=== PATIENT | female | born 1975 | race Caucasian/White ===

== ENCOUNTER 2018-12-15 22:54 | Emergency (ER) | payer MEDICAID, OTHER ==
[~2018-12-15] VITALS: Ht 147.3 cm; Wt 58.3 kg
[~2018-12-15 22:54] MED LIST: NAPR-985 PO
[2018-12-15 23:11] VITALS: BP 153/77; PULSE 70; RESP 18; Ht 147.3 cm; Wt 58.3 kg
[2018-12-15] MEDS ORDERED: ONDANSETRON (ODT) 4 MG TAB ODT STA (23:38)
[2018-12-15] MEDS ORDERED: KETOROLAC 30 MG INJ IM STA (23:38)
--- NOTE | 2018-12-15 23:42 | ERD ---
ER Documentation Chief Complaint Chief Complaint SHULTZ AND R EAR PAIN X 1 WEEK HPI 43-year-old female presenting to the emergency department complaining of gradual onset, 10/10 severity, intermittent headache for the past 1 week. She took Excedrin with some relief. She denies any nausea, vomiting, diarrhea. She stat es over the past 2 months she has been having intermittent headaches. She has not yet had imaging. ROS All systems reviewed and are negative except as per history of present illness. Medications Home Meds Active Scripts Naproxen* (Naprosyn*) 500 Mg Tablet, 500 MG PO BID PRN for PAIN AND/OR INFLAMMATION, #30 TAB Prov:NICOLASA YATES PA-C 12/16/18 Allergies Allergies: Coded Allergies: No Known Allergy (Unverified , 12/15/18) PMhx/Soc Medical and Surgical Hx: pt denies Medical Hx, pt denies Surgical Hx Hx Alcohol Use: No Hx Substance Use: No Hx Tobacco Use: No Smoking Status: Never smoker FmHx Family History: No diabetes Physical Exam Vitals Physical Exam Const: No acute distress Head: Atraumatic Eyes: Normal Conjunctiva ENT: Normal External Ears, Nose and Mouth. Neck: Full range of motion. No meningismus. Resp: Clear to auscultation bilaterally Cardio: Regular rate and rhythm, no murmurs Skin: No petechiae or rashes Back: No midline or flank tenderness Ext: No cyanosis, or edema Neur: Awake and alert. No neurological deficits. Psych: Normal Mood and Affect Results 24 hrs Laboratory Tests Test 12/15/18 23:47 POC Beta HCG, Qualitative NEGATIVE Current Medications Medications Dose Sig/Christine Start Time Status Last (Trade) Ordered Route PRN Stop Time Admin Dose Reason Admin 50 mg ONCE ONCE 12/16/18 DC 12/15/18 Diphenhydrami PO 00:00 12/16/18 23:54 ne HCl 00:01 (Benadryl) Ketorolac 30 mg ONCE STAT 12/15/18 DC 12/15/18 Tromethamine IM 23:38 12/15/18 23:54 (Toradol) 23:39 Ondansetron 4 mg ONCE STAT 12/15/18 DC 12/15/18 HCl (Zofran ODT 23:38 12/15/18 23:54 Odt) 23:39 [facility] [place] [id number] Radiology Main Line: [phone] DIAGNOSTIC IMAGING REPORT Patient: KAIDEN ALMEIDA : 1975 Age: 43 Sex: F MR #: [id number] [place] [facility] #: [id number] DOS: 12/15/18 0000 Ordering MD: NICOLASA YATES PA-C Location: [facility] Room/Bed: PROCEDURE: CT Head without. CLINICAL INDICATION: Headache. TECHNIQUE: The study was performed utilizing a multi-slice, multidetector CT scanner. Direct spiral 1 mm axial sections were obtained through the head without the use of intravenous contrast material. 1 or more of the following dose reduction techniques were utilized: Automated exposure control, adjustment of the mA and/or kV according to patient's size, iterative reconstruction technique. Coronal and sagittal reformations were obtained. The images were reviewed on a PACS workstation. DICOM images are available. RADIATION DOSE: CTDIvol: 38.46 mGy mGy DLP: 634.23 mGy.cm mGy-cm COMPARISON: No prior studies are available for comparison. FINDINGS: There is no intracranial hemorrhage, extra-axial fluid collection, mass lesion, midline shift or hydrocephalus. The ventricles, sulci and cisterns are within normal limits. The white matter is unremarkable. The pagan-white matter differentiation is preserved. The basal cisterns are patent. The midline structures are intact. The orbits, calvarium and extracranial soft tissues are normal in appearance. The visualized paranasal sinuses, mastoid air cells and middle ear cavities are normally aerated. IMPRESSION: 1. No acute intracranial abnormality. No intracranial hemorrhage, extra-axial fluid collection, mass lesion or hydrocephalous. RPTAT: HGAS .Zach Canales MD, MD Date Time Electronically viewed and signed by .Zach Cnaales MD, MD on 12/16/2018 00:29 .S/ CC: NICOLASA YATES PA-C [id number] Procedures/MDM Patient is a 43-year-old female presenting to the emergency department with complaints of headache. Differential diagnoses include meningitis, intracranial hemorrhage, subarachnoid hemorrhage, CVA, TIA, tension headache, migraine, cluster headache, and others. I doubt any life threatening etiology at this time. [CT scan of the head was unremarkable.] Patient improved in the department after treatment with Toradol, Benadryl, and Zofran. Pt is to follow- up with primary care physician and return here immediately for any new or worsening symptoms. Patient's neurologic symptoms have stabilized while they have been evaluated in the department and are appropriate for outpatient work up. No e/o meningitis, intracranial bleed, seizure, stroke. No evidence of life-threatening pathology at time of discharge. Pt/family in agreement with discharge plan/diagnosis. Pt/family advised to return immediately with any new or worsening symptoms. Follow-up with primary care physician within the next 1- 2 days. Patient's blood pressure was elevated (>120/80) but appears stable without evidence of hypertension emergency or urgency. The patient is to follow -up and pursue outpatient monitoring and therapy with their primary care physician within 1 week and return immediately if they have any new, worsening, or concerning symptoms. Disclaimer: Inadvertent spelling and grammatical errors are likely due to EHR/dictation software use and do not reflect on the overall quality of patient care. Also, please note that the electronic time recorded on this note does not necessarily reflect the actual time of the patient encounter. Departure Diagnosis: Primary Impression: Headache Headache type: unspecified Headache chronicity pattern: acute headache Intractability: not intractable Qualified Codes: R51 - Headache Condition: Fair Patient Instructions: Self-Care for Headaches Additional Instructions: Muchas perry por [facility] para ferrari servicio. Esperamos que en ferrari visita a la pattie de emergencia ferrari problema medico haya sido solucionado y que se sienta mucho mejor. Para estar seguros que ferrari mejoria sigue en proceso, le pedimos el favor de hacer isela estefanía de seguimiento medico con ferrari doctor primario en los proximos 2-4 ryder. Lleve con usted estos documentos y las medicinas recetadas. Si sarthak sintomas empeoran, NO SE ESPERE, por favor regrese a pattie de emergencia INMEDIATAMENTE. En aaron que usted no tenga un mdico de atencin primaria: Llame al mdico o clnica comunitaria de referencia que aparece abajo hussein las horas de consultorio para hacer isela estefanía para que le vean. CLINICAS: [facility] [phone] [facility] [phone] [address] [facility] [phone] [place] [id number] [phone] [place] [id number] [phone] [facility]. [phone] NICOLASA CARTAGENA PA-C Dec 15, 2018 23:42
[2018-12-16] MEDS ORDERED: DIPHENHYDRAMINE 50 MG CAP PO ONE
== END 2018-12-16 01:22 | disposition home or self-care (01) ==
LOC: FTE 22:54
DX: R51 Headache (principal)
CPT/HCPCS: 70450; 81025; 96372; J1885; Z7502; Z7610